=== PATIENT | female | born 1960 | race Caucasian/White ===

== ENCOUNTER 2018-08-03 21:47 | Emergency (ER) | payer OTHER ==
--- NOTE | 2018-08-03 22:10 | PDOC ---
History of Present Illness - General History Source: Patient Exam Limitations: No Limitations - General Chief Complaint: Chest Pain Stated Complaint: CHEST PAIN Time Seen by Provider: 08/03/18 21:56 - History of Present Illness Initial Comments: 08/03/18 22:31 Patient is a 58 year old female with a significant past medical history of Obesity, SERAFIN, HLD, who presents to the ED with complaints of chest pain that began yesterday afternoon. Patient reports experiencing chest pain with associated left arm pain, left shoulder pain, intermittent diaphoresis, and increased fatigue. She reports calling her doctor who advised her to come into the ED for further evaluation. Patient reports taking x2 advil 1 hour prior to ED arrival, with slight relief. Denies chest pain, Sob. Denies nausea, vomiting. Denies fevers, chills. Denies contact with sick individuals, out of state travelling. Denies constipation, diarrhea. Denies dysuria, hematuria. Denies trauma to affected area. Denies any other symptoms. Allergies: None Social history: Former smoker. No alcohol. No illicit drugs. Surgical history: Mole removal. PMD: None Adult ROS General: No fevers or chills, no weakness, no weight loss HEENT: No change in vision. No sore throat, No ear pain Cardiovascular: +Chest pain. +shortness of breath Respiratory:No cough, or wheezing. Gastrointestinal: No nausea, vomiting, diarrhea or constipation, No rectal bleeding Genitourinary: No dysuria, hematuria, or frequency Musculoskeletal: +Left shoulder pain. +Left arm pain. No swelling Neurologic: No headache, vertigo, dizziness or loss of consciousness Psychiatric: No depression Skin: No rashes or easy bruising Endocrine: No increased thirst or abnormal weight change Allergic: No skin or latex allergy All other systems reviewed and normal Adult PE General: Well-nourished well-developed individual, no acute distress HEENT: Throat: Normal, tonsils normal, no erythema or exudate Neck: Supple, no meningeal signs, no lymphadenopathy Eyes:Pupils equal reactive and round, extraocular motion intact Chest: Nontender to palpation Cardiac: S1-S2 normal, regular rate and rhythm, no murmurs rubs or gallops Respiratory: Lungs clear to auscultation bilateral Abdomen: Soft, nondistended, normal bowel sounds, nontender to palpation diffusely Extremities: Warm, dry, no cyanosis, clubbing, or edema Skin: No rashes Neuro: Alert and oriented x3, nonfocal exam, grossly intact, normal gait Psych: Normal mood and affect (IsabellaPietro) 08/03/18 22:21 A portion of this note was documented by scribe services under my direction. I have reviewed the details of the note, within reason, and agree with the documentation with the following case summary and management plan written by me. Patient treated in the ED. Nursing notes are reviewed and incorporated into the medical decision-making. Vital signs reviewed. Assessment and plan: This is a 58-year-old female comes in complaining of chest pain radiating to her left arm and neck area. Patient said is associated with some shortness of breath, but no nausea. Patient has multiple risk factors. Workup initiated including CBC, comp, cardiac, EKG, chest x-ray 08/03/18 23:13 Patient's troponin was negative, Patient's chest x-ray was normal Patient has a heart score of 4 based on her risk factors and her story. Patient does not want to stay she is signing out AGAINST MEDICAL ADVICE. By signing out AGAINST MEDICAL ADVICE she understands the risk including heart attack permanent disability or sudden . (Oneal Abreu I) Past History - Past Medical History Cardiac Disorders: Yes (PALPITATIONS) Psychiatric Problems: Yes - Suicide/Smoking/Psychosocial Hx Smoking History: Current some day smoker If you are a former smoker, when did you quit?: OCCASIONAL SMOKER Hx Alcohol Use: No Drug/Substance Use Hx: No Substance Use Type: None - Past Medical History Allergies/Adverse Reactions: Allergies Allergy/AdvReac Type Severity Reaction Status Date / Time No Known Allergies Allergy Verified 08/03/18 22:37 Home Medications: Ambulatory Orders Escitalopram Oxalate [Lexapro -] 10 mg PO DAILY 04/10/15 Metoprolol Tartrate [Lopressor -] 25 mg PO HS 04/10/15 Aspirin 81 mg PO DAILY 08/03/18 Ubidecarenone [Coq10] 50 mg PO DAILY 08/03/18 - Vital Signs Last Vital Signs Temp Pulse Resp BP Pulse Ox 98.2 F 74 14 117/86 100 08/03/18 22:34 08/03/18 22:34 08/03/18 22:34 08/03/18 22:34 08/03/18 22:34 Heart Score/ECG Review - History History: Moderately suspicious - Electrocardiogram EKG: Normal - Age Age: 45-65 - Risk Factors Based on the list above the patient has:: >/=3 risk factors or Hx atherosclerotic disease - Troponin Troponin: </= normal limit - Score Heart Score - Total: 4 - Procedure Monitoring Vital Signs: Procedure Monitoring Vital Signs Temperature 98.2 F 08/03/18 22:34 Pulse Rate 74 08/03/18 22:34 Respiratory Rate 14 08/03/18 22:34 Blood Pressure 117/86 08/03/18 22:34 O2 Sat by Pulse Oximetry (%) 100 08/03/18 22:34 ED Treatment Course - LABORATORY CBC & Chemistry Diagram: 08/03/18 22:23 08/03/18 22:23 - ADDITIONAL ORDERS Additional order review: Laboratory Results 08/03/18 08/03/18 08/03/18 22:23 22:23 22:23 Sodium 137 Potassium 4.6 Chloride 102 Carbon Dioxide 30 H Anion Gap 5 L BUN 16 Creatinine 0.9 Creat Clearance w eGFR > 60 Random Glucose 99 D Calcium 9.4 Total Bilirubin 0.5 AST 32 D ALT 52 H D Alkaline Phosphatase 74 Creatine Kinase 86 Troponin I < 0.03 Total Protein 7.2 Albumin 4.2 08/03/18 22:23 RBC 4.88 MCV 70.9 L MCHC 31.4 L RDW 14.2 MPV 8.6 Neutrophils % No Result Required. Lymphocytes % No Result Required. - RADIOLOGY Radiology Studies Ordered: Category Date Time Status CHEST X-RAY PORTABLE* [RAD] Stat Radiology 08/03/18 22:20 Taken *DC/Admit/Observation/Transfer - Discharge Dispostion Decision to Admit order: No Diagnosis at time of Disposition: Chest pain Qualifiers: Chest pain type: unspecified Qualified Code(s): R07.9 - Chest pain, unspecified - Discharge Dispostion Disposition: AGAINST MEDICAL ADVICE Condition at time of disposition: Stable - Patient Instructions Additional Instructions: Your leaving AGAINST MEDICAL ADVICE. By evening AGAINST MEDICAL ADVICE U except the risk including heart attack, permanent disability or . If at any time E change her mind come back to the emergency department. It is very important that you follow-up with a sleeve sewer tomorrow if you need a sleeve sewer call Dr. Clarke at [phone]. Return to the emergency department immediately with ANY new, persistent or worsening symptoms. Continue any medications as previously prescribed by your physician. You should follow up with your primary doctor as soon as possible regarding today's emergency department visit. . Please make sure your doctor reviews the results of your emergency evaluation. Thank you for coming to the Emergency Department today for your care. It was a pleasure to see you today. Please note that your evaluation is INCOMPLETE until you follow-up with your doctor. - Attestations Scribe Attestion: 08/03/18 22:31 Documentation prepared by Pietro Mason, acting as medical coding manager for Oneal Abreu MD. (Pietro Mason)
[2018-08-03 22:36] VITALS: BP 117/86; PULSE 74; TEMP 98.2; BMI 31.6
[2018-08-03 22:45] LABS: HEMATOCRIT 34.6 % (32.4-45.2); HEMOGLOBIN 10.9 GM/dl (10.7-15.3); MCH 22.3 pg (25.7-33.7); MCHC 31.4 g/dl (32.0-36.0); MEAN CELL VOLUME 70.9 fl (80-96); MEAN PLT VOLUME 8.6 fl (7.5-11.1); PLATELET COUNT 427 K/MM3 (134-434); RBC 4.88 M/mm3 (3.60-5.2); RDW 14.2 % (11.6-15.6); WHITE BLOOD COUNT 6.9 K/mm3 (4.0-10.8)
[2018-08-03 22:59] LABS: ALBUMIN 4.2 g/dl (3.5-5.0); ALK PHOS 74 U/L (32-92); ANION GAP 5 MMOL/L (8-16); BILIRUBIN,TOTAL 0.5 mg/dl (0.2-1.0); BLOOD UREA NITROGEN 16 mg/dl (7-18); CALCIUM 9.4 mg/dl (8.4-10.2); CHLORIDE 102 mmol/L (98-107); CO2 30 mmol/L (22-28); CREATININE 0.9 mg/dl (0.6-1.3); GLUCOSE,RANDOM 99 mg/dl (74-106); POTASSIUM 4.6 mmol/L (3.5-5.1); SGOT/AST 32 U/L (10-42); SGPT/ALT 52 U/L (10-40); SODIUM 137 mmol/L (136-145); TOT PROT 7.2 g/dl (6.4-8.3)
[2018-08-03 23:17] LABS: PLATELET ESTIMATE SLT INCREASE
--- NOTE | 2018-08-04 10:13 | EKG ---
Test Reason : Blood Pressure : / mmHG Vent. Rate : 063 BPM Atrial Rate : 063 BPM P-R Int : 154 ms QRS Dur : 080 ms QT Int : 426 ms P-R-T Axes : 045 005 021 degrees QTc Int : 435 ms NORMAL SINUS RHYTHM NORMAL ECG NO PREVIOUS ECGS AVAILABLE Confirmed by LYA LEAHY, DARREL ([id number]) on 08/04/2018 10:13:06 AM Referred By: DR DA SILVA Confirmed By:DARREL CHUN MD
== END 2018-08-03 23:25 | disposition left against medical advice (07) ==
LOC: FER 21:47
DX: R07.9 Chest pain, unspecified (principal); E66.9 Obesity, unspecified; G47.33 Obstructive sleep apnea (adult) (pediatric); E78.5 Hyperlipidemia, unspecified
CPT/HCPCS: 36415; 71045-TC-FY; 80053; 82550; 84484; 85025; 93005; 99282-25